=== PATIENT | female | born 1990 | race African-American/Black ===

== ENCOUNTER 2018-10-25 22:47 | Emergency (ER) | payer SELFPAY ==
[~2018-10-25] VITALS: Ht 149.9 cm; Wt 68.0 kg
[2018-10-26 01:02] VITALS: BP 147/77
[2018-10-26] MEDS ORDERED: GENTAMICIN OPTH sol 0.3% 5ml EACHEYE ONE (01:45)
[2018-10-26] MEDS ORDERED: IBUPROFEN 800 MG TAB PO ONE (02:00)
== END 2018-10-26 02:15 | disposition home or self-care (01) ==
LOC: ER 22:47
DX: H10.9 Unspecified conjunctivitis (principal)

== ENCOUNTER 2019-09-06 20:00 | Emergency (ER) | payer OTHER ==
[~2019-09-06] VITALS: Ht 149.9 cm; Wt 63.5 kg
[2019-09-06 23:19] VITALS: BP 107/64
== END 2019-09-06 23:39 | disposition home or self-care (01) ==
LOC: ER 20:00
DX: S93.401A Sprain of unspecified ligament of right ankle, initial encounter (principal); Y08.89XA Assault by other specified means, initial encounter; Y93.89 Activity, other specified; Y92.89 Other specified places as the place of occurrence of the external cause; Y99.8 Other external cause status
CPT/HCPCS: 73610

== ENCOUNTER 2019-09-12 22:34 | Emergency (ER) | payer OTHER ==
[~2019-09-12] VITALS: Ht 160 cm; Wt 59.0 kg
[2019-09-12] MEDS ORDERED: IPRATROPIUM BROM 0.5 MG/2.5ML INH SOL NEB ONE (23:00)
[2019-09-12] MEDS ORDERED: ALBUTEROL SULF 2.5 MG/0.5ML(0.5%) NEB SOLN NEB ONE (23:00)
[2019-09-13 01:37] VITALS: BP 126/81
[2019-09-13] MEDS ORDERED: ACETAMINOPHEN 325 MG TAB PO ONE (01:45)
[2019-09-13] MEDS ORDERED: SODIUM CHLORIDE 0.9% 1,000 ML IV ONE (01:45)
[2019-09-13 02:49] LABS: Urine Bacteria FEW /hpf (None Seen); Urine Blood Negative /uL (Negative); Urine Mucus FEW (None Seen); Urine WBC 1 /hpf (0 - 5)
[2019-09-13 02:58] LABS: Alcohol, Urine < 3.0 mg/dL (0-5); Amphetamine Screen, Urine POSITIVE (NEGATIVE); Barbiturate Scree,Urine NEGATIVE (NEGATIVE); Benzodiazephine Screen, Urine NEGATIVE (NEGATIVE); Cannabinoid Screen, Urine POSITIVE (NEGATIVE); Cocaine Screen, Urine NEGATIVE (NEGATIVE); Opiate Scree,Urine NEGATIVE (NEGATIVE); Phencyclidine Screen, Urine NEGATIVE (NEGATIVE)
[2019-09-13 02:58] LABS: Hematocrit 36.7 % (36.0-46.0); Mean Corpuscular Hemoglobin 29.3 pg (28.0-32.0); Mean Corpuscular Hgb Conc. 32.7 g/dL (32.0-36.0); Mean Corpuscular Volume 89.7 fL (80.0-100.0); Platelet Count (auto) 302 10^3/uL (140-450); Red Blood Cells 4.09 10^6/uL (4.0-5.20); Red Cell Distribution Width 11.9 % (11.8-14.3); White Blood Cell 24.8 10^3/uL (4.4-10.8)
[2019-09-13 03:16] LABS: Albumin 2.9 g/dL (3.4-5.0); BUN/Creatinine Ratio 10.8; Calcium 7.8 mg/dL (8.5-10.1); Potassium 3.2 mmol/L (3.5-5.1)
[2019-09-13 03:17] LABS: Basophils % (manual) 0 (0.0-2.0); Blast Cells 0; Eosinophils % (manual) 0 (0-7); Metamyelocytes % 0; Promyelocytes % 0
[2019-09-13 03:24] LABS: Bilirubin, Total 1.3 mg/dL (0.2-1.0); Total Protein 7.3 g/dL (6.4-8.2)
[2019-09-13] MEDS ORDERED: ALBUTEROL SULF 2.5 MG/0.5ML(0.5%) NEB SOLN NEB ONE (06:00)
[2019-09-13 06:50] LABS: Band Neutrophils % (manual) 12; Lymphocytes % (manual) 2 (10.0-50.0); Monocytes % (manual) 5 (0-12); Myelocytes % 1; Reactive Lymphocytes 1
== END 2019-09-13 07:23 | disposition home or self-care (01) ==
LOC: ER 22:35
DX: O99.511 Diseases of the respiratory system complicating pregnancy, first trimester (principal); J45.909 Unspecified asthma, uncomplicated
CPT/HCPCS: 36415; 80053; 80307; 81001; 85007; 85027; 87804; 94640; 99284; J7611; J7644